=== PATIENT | male | born 1975 | race Caucasian/White ===

== ENCOUNTER 2019-08-19 14:52 | Emergency (ER) | payer BC, OTHER ==
[~2019-08-19] VITALS: Ht 177.8 cm; Wt 90.7 kg
[~2019-08-19 14:52] MED LIST: AMOX TR-K CLV1 EAC3 PO; AUGMENTIN 500-1 EACH PO; AZITHROMYCIN 2250 MG PO; CATAPRES0.1 MG PO; CEFDINIR300 MG PO; CHLORDIAZEPOXIDE5 M2 PO; CHLORTHALIDONE25 MG PO; COLACE100 MG PO; HYDROXYZINE HCL25 M1 PO; LEXAPRO20 MG PO; LIPITOR 20 MG T20 M1 PO; MAGIC MOUTHWASH BLM SWISH&SPIT; NEURONTIN600 MG PO; NORVASC10 MG PO; OMEPRAZOLE20 M1 PO; PRENATAL PO; PRINIVIL20 MG PO; TRAZODONE HCL50 MG PO; VITAMIN B-1100 M1 PO; VITAMINC500 PO; ZESTRIL40 MG PO
[2019-08-19] MEDS ORDERED: HYDROXYZINE HCL25 M2 PO (15:01)
[2019-08-19] MEDS ORDERED: LEXAPRO 10 MG T10 MG PO (15:01)
[2019-08-19] MEDS ORDERED: TRAZODONE HCL100 MG PO (15:02)
[2019-08-19] MEDS ORDERED: OMEPRAZOLE 20 M20 M1 PO (15:02)
[2019-08-19 15:59] VITALS: BP 117/67
== END 2019-08-19 15:56 | disposition home or self-care (01) ==
LOC: ER 14:52
DX: B34.9 Viral infection, unspecified (principal); R51 Headache; Z20.828 Contact with and (suspected) exposure to other viral communicable diseases; K21.9 Gastro-esophageal reflux disease without esophagitis; E78.5 Hyperlipidemia, unspecified; F41.9 Anxiety disorder, unspecified; F32.9 Major depressive disorder, single episode, unspecified; F17.210 Nicotine dependence, cigarettes, uncomplicated; Z90.49 Acquired absence of other specified parts of digestive tract

== ENCOUNTER → 2020-04-07 | Outpatient (CLI) | payer BC ==
[~2020-04-07] MED LIST changes: +HYDROXYZINE HCL25 M2 PO; +LEXAPRO 10 MG T10 MG PO; +OMEPRAZOLE 20 M20 M1 PO; +TRAZODONE HCL100 MG PO
== END ==
LOC: RAD 10:40
PROVIDERS: ATTEND Nurse Practitioner
DX: M43.16 Spondylolisthesis, lumbar region (principal); M47.26 Other spondylosis with radiculopathy, lumbar region

== ENCOUNTER 2020-04-12 11:27 | Emergency (ER) | payer BC ==
[~2020-04-12] VITALS: Ht 167.6 cm; Wt 93.4 kg
[2020-04-12] MEDS ORDERED: TRAMADOL 50 MG50 MG PO (11:37)
[2020-04-12] MEDS ORDERED: CYCLOBENZAPRINE10 MG PO (11:37)
[2020-04-12] MEDS ORDERED: HYDROCODON-ACE1 EAC7 PO (12:24)
[2020-04-12 13:07] VITALS: BP 131/82
== END 2020-04-12 13:10 | disposition home or self-care (01) ==
LOC: ER 11:27
DX: M54.32 Sciatica, left side (principal); K21.9 Gastro-esophageal reflux disease without esophagitis; E78.5 Hyperlipidemia, unspecified; F17.210 Nicotine dependence, cigarettes, uncomplicated; I10 Essential (primary) hypertension; Z79.899 Other long term (current) drug therapy

== ENCOUNTER → 2020-04-13 | Outpatient (CLI) | payer BC ==
[~2020-04-13] MED LIST changes: +CYCLOBENZAPRINE10 MG PO; +HYDROCODON-ACE1 EAC7 PO; +TRAMADOL 50 MG50 MG PO
== END ==
LOC: MRI 09:33
PROVIDERS: ATTEND Neuromusculoskeletal Medicine & OMM
DX: M51.36 Other intervertebral disc degeneration, lumbar region (principal); M48.061 Spinal stenosis, lumbar region without neurogenic claudication

== ENCOUNTER → 2020-04-21 | Outpatient (CLI) | payer BC ==
[~2020-04-21] VITALS: Ht 175.3 cm; Wt 92.1 kg
[2020-04-21 12:53] VITALS: BP 131/90
--- NOTE | 2020-04-21 13:01 | NUR ---
Pain Clinic Assessment: 1. History of Osteoarthritis: LOW BACK History of Rheumatoid Arthritis: Not Applicable 2. Height: 5 ft. 9 in. 175.3 cm. Weight: 203.0 lb. oz. 92.080 kg. Patient's BMI: 30.0 3. Vital Signs: BP: 131/90 Pulse: 96 Resp: 16 Temp: 02 Sat: 98 ECG Mon: 4. Pain Intensity: 6 5. Fall Risk: Dizziness: N Needs help standing or walking: N Fallen in the last 3 months: N Fall risk comments: 6. Patient on Blood Thinner: None 7. History of Hypertension: N 8. Opioid Therapy greater than 6 weeks: N Opiate Contract Signed: 9. Risk Assessment Tool Provided: HIGH-11 10. Functional Assessment Tool: 54/70 11. Recreational Drug Use: Never Drug Type: Tobacco Use: Current Every Day Smoker Tobacco Type: Cigarettes Amount or Packs/day: 1/2 PACK How Many Years: Alcohol Use: No Frequency: Quant:
--- NOTE | 2020-04-27 07:44 | HPC ---
[facility] [place] [address] PAIN MANAGEMENT CONSULTATION Name: PANCHITO BROWN Jennifer MCCARTY Room #: REG BEENA Liam#: [id number] Admission: 04/21/20 Attend Phys: Brian Do DO Discharge: Date of : 77 Report #: [id number] THIS REPORT FOR: cc: Jose Enrique Bernal Steven F. DO Johnson, James E. DO ~ DATE OF SERVICE: 04/21/2020 CHIEF COMPLAINT: Low back pain, lower extremity pain with paresthesias. HISTORY OF PRESENT ILLNESS: As you know, the patient is a 45-year-old male who has returned today in followup visit to undergo lumbar epidural injection under fluoroscopic guidance. We saw the patient yesterday where he was diagnosed with lumbar radiculopathy involving the low back and left lower extremity. He is placing his pain score at 6/10. We discussed with the patient the various treatment options we have available to address lumbar radiculopathy. He was established today's appointment to undergo lumbar epidural injection per his request. He returns today in followup visit reporting pain at 8/10. He has had no changes in medical history over the last 12 hours. He returns to undergo first in a series of lumbar epidural injections under fluoroscopic guidance. ALLERGIES: No known drug allergies. CURRENT MEDICATIONS: Hydrocodone, cyclobenzaprine, tramadol, trazodone, omeprazole, hydroxyzine, escitalopram, lisinopril, chlorthalidone, atorvastatin. SOCIAL HISTORY: The patient reports himself as a smoker. He denies IV or illicit drug use. Denies any chronic alcohol use. He is unaccompanied at today's visit. IMAGING: No new imaging available. PHYSICAL EXAMINATION: VITAL SIGNS: Blood pressure 131/90, pulse is 96, respiratory rate 16 and unlabored. The patient is 98% on room air. GENERAL: Well-developed, well-nourished, well-hydrated 45-year-old male appearing stated age, placing current pain score 8/10. HEENT: Normocephalic, atraumatic. Pupils equal, round and reactive. The patient is wearing a mask in compliance with COVID-19 regulations. EXTREMITIES: Show no clubbing, no cyanosis, no edema. MUSCULOSKELETAL: Lower extremity strength equal and symmetrical 5/5. Slight giveaway strength noted with hip flexion on the left when compared to the right due to pain generation. Muscle bulk and tone equal and symmetrical. Seated straight leg raising positive on the left. Supine straight leg raising positive on the left. [address] [address] PAIN MANAGEMENT CONSULTATION Name: STEPHANIEPANCHITO C [facility] Room #: REG [facility]#: [id number] Admission: 04/21/20 Attend Phys: Brian Do DO Discharge: Date of : 77 Report #: [id number] ASSESSMENT: 1. Symptomatic lumbar radiculopathy. 2. Displacement of lumbar intervertebral disk with radiculopathy. 3. Lumbosacral spondylosis with radiculopathy. PLAN: 1. The patient returns today in followup visit to undergo the first in the series of requested lumbar epidural injections under fluoroscopic guidance. The patient has been advised the risks and the benefits of this procedure. These risks include but are not necessarily limited to bleeding, bruising, infection, worsening pain, no relief of pain, also risk of temporary or permanent muscle weakness, temporary or permanent nerve damage, possible paralysis and . The patient states understood and wished to proceed. 2. No medication changes made at today's visit. The patient will continue current medical therapy as prior prescribed. 3. We will see the patient back in followup visit in 30 days for possible next in the series of epidural injections. We are hopeful the patient will see good and prolonged benefit with today's procedure. We will keep you apprised of his response to treatment. PROCEDURE NOTE DESCRIPTION OF PROCEDURE: L5-S1 left paramedian epidural steroid injection under fluoroscopic guidance. This is the first procedure of the first series that the patient is undergoing. After obtaining written consent, the patient was taken back to the fluoroscopy suite, placed in a prone position with pillow under the abdomen to decrease lumbar lordosis. The skin overlying the lumbosacral area was then prepped and draped in aseptic fashion. The L5-S1 vertebral interspace was then identified by AP fluoroscopy. The skin and subcutaneous tissue overlying the target site of injection was anesthetized with 3 mL 1% lidocaine. A 20-gauge 3-1/2 inch Tuohy needle was then advanced under fluoroscopic guidance towards the epidural space using a left paramedian approach. The epidural space was identified using loss of resistance to air technique. After negative aspiration for heme or cerebrospinal fluid, a total of 1 mL of Omnipaque was injected. A lumbar epidurogram was confirmed using both AP and lateral fluoroscopy. After negative aspiration for heme or cerebrospinal fluid, 5 mL of a solution containing 2 mL 40 mg per mL, 80 mg total triamcinolone along with 3 mL of lidocaine 1% was injected in increments. Contrast spread was noted posterior epidural space. The needle was then retracted approximately half way and needle tract flushed with 1 mL of 1% lidocaine. Needle was then removed. There were no apparent sensory or motor deficits in the lower extremity following the procedure. A sterile bandage was placed over the injection site. [facility] [address] [place] [address] PAIN MANAGEMENT CONSULTATION Name: PANCHITO BROWN III Room #: REG [facility] [id number] Admission: 04/21/20 Attend Phys: Brian Do DO Discharge: Date of : 77 Report #: [id number] The heart rate, pulse, oximetry and blood pressure were continuously monitored after the procedure. There were no apparent complications. The patient tolerated the procedure well and was carefully escorted to the recovery room in stable condition. There were no apparent complications. After meeting discharge criteria, the patient was then discharged home. <ELECTRONICALLY SIGNED> By: Brian Do DO 04/27/20 [id number] Brian Do DO /nt
== END | disposition home or self-care (01) ==
LOC: PAIN 07:01
PROVIDERS: ATTEND Anesthesiology Pain Medicine
DX: M51.16 Intervertebral disc disorders with radiculopathy, lumbar region (principal); M47.27 Other spondylosis with radiculopathy, lumbosacral region; G89.29 Other chronic pain; F17.210 Nicotine dependence, cigarettes, uncomplicated; I10 Essential (primary) hypertension; Z98.890 Other specified postprocedural states; Z79.899 Other long term (current) drug therapy; Z79.891 Long term (current) use of opiate analgesic